=== PATIENT | female | born 1950 | race Asian ===

== ENCOUNTER 2024-04-02 07:37 | Inpatient (IN) | payer MEDICARE, MEDICAID ==
[~2024-04-02] VITALS: Ht 154.9 cm; Wt 57.5 kg
[~2024-04-02 07:37] MED LIST: CALC1CHW PO; LEVO50TA7 PO
[2024-04-02 08:34] LABS: Basophils # (auto) 0 10 ^3/uL (0-0.2); Basophils % (auto) 0.8 % (0.0-2.0); Eosinophils # (auto) 0 10 ^3/uL (0-0.8); Eosinophils % (auto) 0.8 % (0.0-7.0); Hematocrit 38.8 % (36.0-46.0); Hemoglobin 13.7 g/dL (12.2-16.2); Lymphocytes # (auto) 1.7 10 ^3/uL (0.4-5.4); Lymphocytes % (auto) 37.1 % (10.0-50.0); Mean Corpuscular Hemoglobin 33.7 pg (28.0-32.0); Mean Corpuscular Hgb Conc. 35.4 g/dL (32.0-36.0); Mean Corpuscular Volume 95.1 fL (80.0-100.0); Monocytes # (auto) 0.4 10 ^3/uL (0-1.3); Monocytes % (auto) 8.1 % (0.0-12.0); Neutrophils # (auto) 2.5 10 ^3/uL (1.6-8.6); Neutrophils % (auto) 53.2 % (37.0-80.0); Platelet Count (auto) 298 10^3/uL (140-450); Red Blood Cells 4.08 10^6/uL (4.0-5.20); Red Cell Distribution Width 14.2 % (11.8-14.3); White Blood Cell 4.7 10^3/uL (4.4-10.8)
[2024-04-02 08:42] LABS: Chloride 102 mmol/L (98-107); Potassium 4.7 mmol/L (3.5-5.1); Sodium 132 mmol/L (136-145)
[2024-04-02 08:43] LABS: Anion Gap 4 (5-15); Calcium 9.6 mg/dL (8.7-10.4); Carbon Dioxide 26 mmol/L (20-30)
[2024-04-02 08:48] LABS: BUN/Creatinine Ratio 18.4 (10.0-20.0); Blood Urea Nitrogen 14 mg/dL (9-23); Glucose 88 mg/dL (74-106)
[2024-04-02 09:48] VITALS: PULSE 63; RESP 18; O2SAT 96
[2024-04-02 10:37] LABS: Urine Bacteria None Seen /hpf (None Seen); Urine WBC None Seen /hpf (0 - 5)
[2024-04-02 10:54] LABS: Urine Blood Negative /uL (Negative); Urine Clarity Clear (Clear); Urine Color Colorless (Yellow); Urine Protein, UAD Negative (Negative); Urine Specific Gravity 1.008 (1.001-1.035); Urine Urobilinogen Normal (Negative)
[2024-04-02] MEDS: SODIUM CHLORIDE 0.9% 1,000 ML IV SCH (11:15)
[2024-04-02] MEDS: ASPirin 325 MG TAB PO ONE (11:37)
[2024-04-02 12:28] LABS: Erythrocyte Sedimentation Rate 8 mm/hr (0-20)
[2024-04-02] MEDS ORDERED: NITROGLYCERIN 0.4 MG SL TAB SL PRN ×2 (13:15→13:30)
[2024-04-02 14:47] VITALS: BP 157/88; PULSE 68; RESP 18; TEMP 97.8; O2SAT 96
[2024-04-02 15:01] VITALS: BP 112/58; PULSE 68; RESP 18; TEMP 97.9; O2SAT 98
[2024-04-02] MEDS ORDERED: LISI20TA56 PO (16:30)
[2024-04-02] MEDS ORDERED: LACT1CAP33 PO (16:30)
[2024-04-02] MEDS ORDERED: ALEN70TA74 PO (16:30)
[2024-04-02] MEDS ORDERED: LEVO75CA3 PO (16:30)
[2024-04-02] MEDS ORDERED: OMEP20TA PO (16:30)
[2024-04-02] MEDS ORDERED: ESCI10TA PO (16:30)
[2024-04-02] MEDS ORDERED: ATOR10TA52 PO (16:32)
[2024-04-02] MEDS ORDERED: CHOL10006 PO (16:32)
[2024-04-02 21:00] VITALS: BP 155/88; PULSE 59; RESP 17; TEMP 97.9; O2SAT 97
[2024-04-02] MEDS: ATORVASTATIN 20 MG TAB PO SCH (22:00)
[2024-04-03 01:00] VITALS: BP 124/71; PULSE 57; RESP 14; TEMP 97.6; O2SAT 97
[2024-04-03 05:00] VITALS: BP 142/79; PULSE 54; RESP 14; TEMP 97.6; O2SAT 98
[2024-04-03 08:06] LABS: RPR Non Reactive (Non Reactive)
[2024-04-03 09:00] VITALS: BP 145/83; PULSE 64; RESP 16; TEMP 99; O2SAT 97
[2024-04-03] MEDS ORDERED: LEVOTHYROXINE SODIUM 50 MCG TAB PO SCH (10:00)
[2024-04-03] MEDS: ATORVASTATIN 20 MG TAB PO SCH (10:30)
[2024-04-03] MEDS ORDERED: LEVOTHYROXINE SODIUM 25 MCG TAB PO ONE (11:15)
[2024-04-03] MEDS ORDERED: CALCIUM CARB 500 MG CHEW TAB PO SCH (11:15)
[2024-04-03] MEDS: ENOXAPARIN SOD 40 MG/0.4 ML SYRINGE SC SCH (11:37)
[2024-04-03] MEDS: ASPirin 81 mg TAB PO SCH (11:37)
[2024-04-03 11:52] LABS: INR 1.02 (0.9-1.15); Partial Thromboplastin Time 27.9 SEC (24.5-34.5); Prothrombin Time 10.8 sec (9.3-11.8)
[2024-04-03 12:07] LABS: Anion Gap 5 (5-15); Carbon Dioxide 27 mmol/L (20-30); Chloride 103 mmol/L (98-107); Potassium 4.2 mmol/L (3.5-5.1); Sodium 135 mmol/L (136-145)
[2024-04-03 12:08] LABS: Calcium 9.7 mg/dL (8.7-10.4)
[2024-04-03 12:13] LABS: BUN/Creatinine Ratio 19.7 (10.0-20.0); Blood Urea Nitrogen 14 mg/dL (9-23); Glucose 103 mg/dL (74-106)
[2024-04-03 12:33] LABS: COVID19 ANTIGEN SOFIA FIA NEGATIVE (NEGATIVE)
[2024-04-03 13:00] VITALS: BP 142/77; PULSE 61; RESP 16; TEMP 98.6; O2SAT 99
[2024-04-03 17:00] VITALS: BP 146/80; PULSE 76; RESP 16; TEMP 98.8; O2SAT 96
[2024-04-03 21:00] VITALS: BP 153/75; PULSE 71; RESP 16; TEMP 98; O2SAT 97
[2024-04-03] MEDS ORDERED: PATIENTS OWN MEDICATION (Atorvastatin Calcium 1 TAB) PO SCH (22:00)
[2024-04-03] MEDS: CHOLECALCIFEROL (VITD3) 1,000UNIT=25mCg TAB PO SCH (22:44)
[2024-04-04 05:00] VITALS: BP 111/72; PULSE 60; RESP 14; TEMP 98; O2SAT 98
[2024-04-04] MEDS: LEVOTHYROXINE SODIUM 25 MCG TAB PO SCH (06:38)
[2024-04-04 09:00] VITALS: BP 129/72; PULSE 70; RESP 16; TEMP 98.3; O2SAT 98
[2024-04-04] MEDS: PANTOPRAZOLE 40 MG TAB PO SCH (11:03)
[2024-04-04] MEDS: LISINOPRIL 20 MG TAB PO SCH (11:03)
[2024-04-04 13:00] VITALS: BP 124/79; PULSE 66; RESP 18; TEMP 97.8; O2SAT 99
[2024-04-04] MEDS: CLOPIDOGREL BISULFATE 75 MG TAB PO ONE (15:28)
[2024-04-04 17:00] VITALS: BP 109/66; PULSE 63; RESP 18; TEMP 98.5; O2SAT 99
[2024-04-04 20:00] VITALS: PULSE 72; RESP 16
[2024-04-04 21:00] VITALS: BP 148/71; PULSE 72; RESP 18; TEMP 98; O2SAT 98
[2024-04-05 01:00] VITALS: BP 124/71; PULSE 98; RESP 18; TEMP 97.8; O2SAT 99
[2024-04-05 05:00] VITALS: BP 161/71; PULSE 82; RESP 16; TEMP 98.1; O2SAT 95
[2024-04-05 08:00] VITALS: PULSE 59; RESP 18; O2SAT 99
[2024-04-05] MEDS: CLOPIDOGREL BISULFATE 75 MG TAB PO SCH (08:47)
[2024-04-05 09:20] VITALS: BP 122/52; PULSE 59; RESP 17; TEMP 98.4; O2SAT 96
[2024-04-05] MEDS ORDERED: ASPI-628 PO (10:59)
[2024-04-05] MEDS ORDERED: CLOP75TA28 PO (10:59)
[2024-04-05 11:26] VITALS: BP 122/52; PULSE 59; RESP 17; TEMP 98.4; O2SAT 96
== END 2024-04-05 14:10 | disposition home or self-care (01) | DRG 65 ==
LOC: ER 07:37 → OVERFLOW 13:13 → ER 13:13 → WEST WING 14:51
PROVIDERS: ADMIT Nurse Practitioner Family; ATTEND Nurse Practitioner Family
DX: I63.89 Other cerebral infarction (principal); E87.1 Hypo-osmolality and hyponatremia; I10 Essential (primary) hypertension; F32.A Depression, unspecified; K21.9 Gastro-esophageal reflux disease without esophagitis; M81.0 Age-related osteoporosis without current pathological fracture; E78.00 Pure hypercholesterolemia, unspecified; Z20.822 Contact with and (suspected) exposure to COVID-19; E89.0 Postprocedural hypothyroidism; Z79.02 Long term (current) use of antithrombotics/antiplatelets; Z79.82 Long term (current) use of aspirin
CPT/HCPCS: 36415; 70450; 70551; 80048; 81001; 82962; 84100; 84443; 85025; 85610; 85652; 85730; 86592; 87426; 93005; 93306; 93886; 96360; 97110; 97116; 97163; 97530; G0378

== ENCOUNTER 2025-01-02 20:10 | Inpatient (IN) | payer MEDICARE, MEDICAID ==
[~2025-01-02] VITALS: Ht 165.1 cm; Wt 54.0 kg
[~2025-01-02 20:10] MED LIST changes: +ALEN70TA74 PO; +ASPI-628 PO; +ATOR10TA52 PO; +CHOL10006 PO; +CLOP75TA28 PO; +ESCI10TA PO; +LACT1CAP33 PO; +LEVO75CA3 PO; +LISI20TA56 PO; +OMEP20TA PO
--- NOTE | 2025-01-02 20:56 | ED.PDOC ---
History of Present Illness Time Seen by MD: 20:40 Primary Care Provider: CHAVO Stover Notes: Nurses Notes, Medications, Allergies Allergies: Coded Allergies: NO KNOWN ALLERGIES (Unverified , 06/13/11) Home Meds Active Scripts Clopidogrel Bisulfate (Plavix) 75 Mg Tab, 1 TAB PO DAILY, #21 TAB 1 Refill Prov:JEWELL THOMPSON MD 04/05/24 Aspirin (Aspirin Adult Low Dose) 81 Mg Tab, 81 MG PO DAILY, #90 TAB Prov:JEWELL THOMPSON MD 04/05/24 Reported Medications Cholecalciferol (Vitamin D) 1,000 Unit Cap, 1000 UNIT PO HS, CAP 04/02/24 Atorvastatin Calcium (ATORVASTATIN CALCIUM) 10 Mg Tab, 1 TAB PO HS, #30 TAB 5 Refills 04/02/24 Escitalopram Oxalate (Lexapro) 10 Mg Tab, 1 TAB PO DAILY, #90 TAB 3 Refills 04/02/24 Lisinopril (Lisinopril) 20 Mg Tab, 10 MG PO DAILY, TAB 04/02/24 Levothyroxine Sodium (Levothyroxine Sodium) 75 Mcg Cap, 75 MCG PO, CAP 04/02/24 Omeprazole (Gnp Omeprazole) 20 Mg Tab, 1 TAB PO DAILY, #90 TAB 1 Refill 04/02/24 Lactobacillus-Inulin (Culturelle Digestive Kye) 1 Cap Cap, 1 CAP PO, CAP 04/02/24 Alendronate Sodium (Alendronate Sodium) 70 Mg Tab, 1 TAB PO QWEEKLY, #4 TAB 3 Refills 04/02/24 Calcium Carbonate (Jared-Gest Antacid) 500 Mg Chw, 500 MG PO PRN, CHW 06/19/13 Levothyroxine Sodium (Levothyroxine Sodium) 50 Mcg Tab, 50 MCG PO DAILY, TAB 06/19/13 Information Source: Patient, Relative (Child) Mode of Arrival: Ambulatory Severity: Moderate Timing: Days Duration: Since onset Prehospital treatment: None Past Medical History PAST MEDICAL HISTORY: Depression, GERD, High Lipids, HTN, Thyroid (hyp othyroidism) Past Medical History (Other): osteoporosis Surgical History: Thyroidectomy CUSTOMER CARE MANAGER History: No Pertinent CUSTOMER CARE MANAGER History Family History Family History: Unknown Social History Smoker: Non-Smoker Alcohol: Denies ETOH Use Drugs: Denies Drug Use Lives In: Home All Other Systems: Reviewed and Negative (Comprehensive systems review obtained and negative except for what is stated in the HPI.) Physical Exam General Appearance: No Apparent Distress, Normal HEENT: Normal ENT Inspection, Pharynx Normal, TMs Normal Neck: Full Range of Motion, Non-Tender, Normal, Normal Inspection Respiratory: Chest Non-Tender, Lungs Clear, No Accessory Muscle Use, No Respiratory Distress, Normal Breath Sounds Cardiovascular: No Edema, No JVD, No Murmur, No Gallop, Normal Peripheral Pulses, Regular Rate/Rhythm Breast Exam: Deferred Gastrointestinal: No Organomegaly, Non Tender, No Pulsatile Mass, Normal Bowel Sounds, Soft Genitalia: Deferred Pelvic: Deferred Rectal: Deferred Extremities: No calf tenderness, Normal capillary refill, Normal range of motion, Non-tender, Swelling (1+ pitting edema to bilateral lowre extremities ) Musculoskeletal : Apperance: Normal Neurologic: Alert, call center specialist II-XII nml as Tested, No Motor Deficits, Normal Affect, Normal Mood, No Sensory Deficits Cerebellar Function: Normal Reflexes: Normal Skin: Dry, Normal Color, Warm Lymphatic: No Adenopathy Was a procedure done? Was a procedure done?: No EKG EKG : [place]: Normal Cardiac Rhythm: NSR Block: None Hypertrophy: None ST: Normal X-Ray, Labs, Meds, VS Vital Signs Date Time Temp Pulse Resp B/P (MAP) Pulse Ox O2 Delivery O2 Flow Rate FiO2 01/02/25 20:35 98.2 77 18 126/68 (87) 99 98.2 Lab Test 01/02/25 20:49 Range/Units White Blood Count 8.4 4.4-10.8 10^3/uL Red Blood Count 3.31 L 4.0-5.20 10^6/uL Hemoglobin 10.5 L 12.2-16.2 g/dL Hematocrit 30.4 L 36.0-46.0 % Mean Corpuscular Volume 91.9 80.0-100.0 fL Mean Corpuscular Hemoglobin 31.8 28.0-32.0 pg Mean Corpuscular Hemoglobin Concent 34.6 32.0-36.0 g/dL Red Cell Distribution Width 13.8 11.8-14.3 % Platelet Count 316 140-450 10^3/uL Mean Platelet Volume 6.0 L 6.9-10.8 fL Neutrophils (%) (Auto) 58.7 37.0-80.0 % Lymphocytes (%) (Auto) 26.3 10.0-50.0 % Monocytes (%) (Auto) 12.9 H 0.0-12.0 % Eosinophils (%) (Auto) 1.4 0.0-7.0 % Basophils (%) (Auto) 0.7 0.0-2.0 % Neutrophils # (Auto) 4.9 1.6-8.6 10 ^3/uL Lymphocytes # (Auto) 2.2 0.4-5.4 10 ^3/uL Monocytes # (Auto) 1.1 0-1.3 10 ^3/uL Eosinophils # (Auto) 0.1 0-0.8 10 ^3/uL Basophils # (Auto) 0.1 0-0.2 10 ^3/uL Nucleated Red Blood Cells 0.0 % Sodium Level 131 L 136-145 mmol/L Potassium Level 3.9 3.5-5.1 mmol/L Chloride Level 100 98-107 mmol/L Carbon Dioxide Level 27 20-31 mmol/L Anion Gap 4 L 5-15 Blood Urea Nitrogen 14 9-23 mg/dL Creatinine 0.67 0.550-1.02 mg/dL Glomerular Filtration Rate Calc 92 >90 mL/min BUN/Creatinine Ratio 20.9 H 10.0-20.0 Serum Glucose 104 74-106 mg/dL Calcium Level 8.9 8.7-10.4 mg/dL Troponin I High Sensitivity < 3 L </=34 ng/L B-Type Natriuretic Peptide 14.88 0-100 pg/mL Time of 1ST Reevaluation: 21:20 Reevaluation 1ST: Unchanged Patient Education/Counseling: Diagnosis, Treatment, Other (need for admission ) Family Education/Counseling: Diagnosis, Treatment, Other (need for admission ) Additional Information Critical Care Note Critical Care Time?: No Stability Stability form required: No Heart Score Heart Score: Heart Score Response (Comments) Value EKG Normal 0 Age >65 2 Risk Factors >3 or Hx ASHD 2 Total 4 I personally scribed for NELDA RUBIO MD ([email or web address]) on 01/02/25 at 20:56. Electronically submitted by Chase Rojas ([email or web address]). I personally scribed for NELDA RUBIO MD ([email or web address]) on 01/02/25 at 21:32. Electronically submitted by Chase Rojas ([email or web address]). NELDA RUBIO MD Jan 02, 2025 20:56
[2025-01-02 20:58] LABS: Basophils # (auto) 0.1 10 ^3/uL (0-0.2); Basophils % (auto) 0.7 % (0.0-2.0); Eosinophils # (auto) 0.1 10 ^3/uL (0-0.8); Eosinophils % (auto) 1.4 % (0.0-7.0); Hematocrit 30.4 % (36.0-46.0); Hemoglobin 10.5 g/dL (12.2-16.2); Lymphocytes # (auto) 2.2 10 ^3/uL (0.4-5.4); Lymphocytes % (auto) 26.3 % (10.0-50.0); Mean Corpuscular Hemoglobin 31.8 pg (28.0-32.0); Mean Corpuscular Hgb Conc. 34.6 g/dL (32.0-36.0); Mean Corpuscular Volume 91.9 fL (80.0-100.0); Monocytes # (auto) 1.1 10 ^3/uL (0-1.3); Monocytes % (auto) 12.9 % (0.0-12.0); Neutrophils # (auto) 4.9 10 ^3/uL (1.6-8.6); Neutrophils % (auto) 58.7 % (37.0-80.0); Platelet Count (auto) 316 10^3/uL (140-450); Red Blood Cells 3.31 10^6/uL (4.0-5.20); Red Cell Distribution Width 13.8 % (11.8-14.3); White Blood Cell 8.4 10^3/uL (4.4-10.8)
[2025-01-02 21:06] LABS: Chloride 100 mmol/L (98-107); Potassium 3.9 mmol/L (3.5-5.1)
[2025-01-02 21:07] LABS: Anion Gap 4 (5-15); Carbon Dioxide 27 mmol/L (20-31)
[2025-01-02 21:08] LABS: Calcium 8.9 mg/dL (8.7-10.4)
[2025-01-02 21:09] LABS: Sodium 131 mmol/L (136-145)
[2025-01-02 21:12] LABS: BUN/Creatinine Ratio 20.9 (10.0-20.0); Blood Urea Nitrogen 14 mg/dL (9-23); Glucose 104 mg/dL (74-106)
--- NOTE | 2025-01-02 21:13 | DVH ---
CHEST RADIOGRAPH Indication: feet swelling Technique: Single frontal view of the chest was obtained COMPARISON: None FINDINGS: Lines and Tubes: None Lungs: Clear Pleura: No effusion. No pneumothorax. Cardiomediastinal contours: Unremarkable IMPRESSION: No acute disease.
--- NOTE | 2025-01-02 21:37 | ED.PDOC ---
History of Present Illness HPI Comments 74 y/o Mandarin speaking F presents with daughter for 3x day history of bilateral feet swelling, with associated shortness of breath. Patient has a history of GERD, HLD, HTN, osteoporoses, and hypothyroidism s/p thyroidectomy. She endorses on unprovoked onset of symptoms, that began, initially, with swelling to her left foot and right foot swelling the day afterwards. Patient reports having same symptoms, with accompanying ED visit and hospitalization a year ago. She denies having any chest pain, palpitations, numbness, tingling, or further associated symptoms. Chief Complaint: Lower Extremity Time Seen by MD: 20:40 Primary Care Provider: CHAVO Reviewed Notes: Nurses Notes, Medications, Allergies Allergies: Coded Allergies: NO KNOWN ALLERGIES (Unverified , 06/13/11) Home Meds Active Scripts Clopidogrel Bisulfate (Plavix) 75 Mg Tab, 1 TAB PO DAILY, #21 TAB 1 Refill Prov:JEWELL THOMPSON MD 04/05/24 Aspirin (Aspirin Adult Low Dose) 81 Mg Tab, 81 MG PO DAILY, #90 TAB Prov:JEWELL THOMPSON MD 04/05/24 Reported Medications Cholecalciferol (Vitamin D) 1,000 Unit Cap, 1000 UNIT PO HS, CAP 04/02/24 Atorvastatin Calcium (ATORVASTATIN CALCIUM) 10 Mg Tab, 1 TAB PO HS, #30 TAB 5 Refills 04/02/24 Escitalopram Oxalate (Lexapro) 10 Mg Tab, 1 TAB PO DAILY, #90 TAB 3 Refills 04/02/24 Lisinopril (Lisinopril) 20 Mg Tab, 10 MG PO DAILY, TAB 04/02/24 Levothyroxine Sodium (Levothyroxine Sodium) 75 Mcg Cap, 75 MCG PO, CAP 04/02/24 Omeprazole (Gnp Omeprazole) 20 Mg Tab, 1 TAB PO DAILY, #90 TAB 1 Refill 04/02/24 Lactobacillus-Inulin (Culturelle Digestive Kye) 1 Cap Cap, 1 CAP PO, CAP 04/02/24 Alendronate Sodium (Alendronate Sodium) 70 Mg Tab, 1 TAB PO QWEEKLY, #4 TAB 3 Refills 04/02/24 Calcium Carbonate (Jared-Gest Antacid) 500 Mg Chw, 500 MG PO PRN, CHW 06/19/13 Levothyroxine Sodium (Levothyroxine Sodium) 50 Mcg Tab, 50 MCG PO DAILY, TAB 06/19/13 Information Source: Patient, Relative (Child) Mode of Arrival: Ambulatory Severity: Moderate Timing: Days Duration: Since onset Prehospital treatment: None Past Medical History PAST MEDICAL HISTORY: Depression, GERD, High Lipids, HTN, Thyroid (hypothyroidism) Past Medical History (Other): osteoporosis Surgical History: Thyroidectomy PUBLIC POLICY COORDINATOR History: No Pertinent PUBLIC POLICY COORDINATOR History Family History Family History: Unknown Social History Smoker: Non-Smoker Alcohol: Denies ETOH Use Drugs: Denies Drug Use Lives In: Home All Other Systems: Reviewed and Negative (Comprehensive systems review obtained and negative except for what is stated in the HPI.) Physical Exam General Appearance: No Apparent Distress, Normal HEENT: Normal ENT Inspection, Pharynx Normal, TMs Normal Neck: Full Range of Motion, Non-Tender, Normal, Normal Inspection Respiratory: Chest Non-Tender, Lungs Clear, No Accessory Muscle Use, No Respiratory Distress, Normal Breath Sounds Cardiovascular: No Edema, No JVD, No Murmur, No Gallop, Normal Peripheral Pulses, Regular Rate/Rhythm Breast Exam: Deferred Gastrointestinal: No Organomegaly, Non Tender, No Pulsatile Mass, Normal Bowel Sounds, Soft Genitalia: Deferred Pelvic: Deferred Rectal: Deferred Extremities: No calf tenderness, Normal capillary refill, Normal range of motion, Non-tender, Swelling (1+ pitting edema to bilateral lowre extremities ) Musculoskeletal : Apperance: Normal Neurologic: Alert, truck shop mechanic II-XII nml as Tested, No Motor Deficits, Normal Affect, Normal Mood, No Sensory Deficits Cerebellar Function: Normal Reflexes: Normal Skin: Dry, Normal Color, Warm Lymphatic: No Adenopathy Was a procedure done? Was a procedure done?: No Differential Dx Considerations may include: DVT, PE, NM, cellulitis, dermatitis, among others X-Ray, Labs, Meds, VS Vital Signs Date Time Temp Pulse Resp B/P (MAP) Pulse Ox O2 Delivery O2 Flow Rate FiO2 01/02/25 22:57 97.9 67 16 148/70 (96) 97 97.9 01/02/25 20:35 98.2 77 18 126/68 (87) 99 98.2 Lab Test 01/02/25 21:47 01/02/25 20:49 Range/Units Troponin I High Sensitivity < 3 L < 3 L </=34 ng/L White Blood Count 8.4 4.4-10.8 10^3/uL Red Blood Count 3.31 L 4.0-5.20 10^6/uL Hemoglobin 10.5 L 12.2-16.2 g/dL Hematocrit 30.4 L 36.0-46.0 % Mean Corpuscular Volume 91.9 80.0-100.0 fL Mean Corpuscular Hemoglobin 31.8 28.0-32.0 pg Mean Corpuscular Hemoglobin Concent 34.6 32.0-36.0 g/dL Red Cell Distribution Width 13.8 11.8-14.3 % Platelet Count 316 140-450 10^3/uL Mean Platelet Volume 6.0 L 6.9-10.8 fL Neutrophils (%) (Auto) 58.7 37.0-80.0 % Lymphocytes (%) (Auto) 26.3 10.0-50.0 % Monocytes (%) (Auto) 12.9 H 0.0-12.0 % Eosinophils (%) (Auto) 1.4 0.0-7.0 % Basophils (%) (Auto) 0.7 0.0-2.0 % Neutrophils # (Auto) 4.9 1.6-8.6 10 ^3/uL Lymphocytes # (Auto) 2.2 0.4-5.4 10 ^3/uL Monocytes # (Auto) 1.1 0-1.3 10 ^3/uL Eosinophils # (Auto) 0.1 0-0.8 10 ^3/uL Basophils # (Auto) 0.1 0-0.2 10 ^3/uL Nucleated Red Blood Cells 0.0 % Sodium Level 131 L 136-145 mmol/L Potassium Level 3.9 3.5-5.1 mmol/L Chloride Level 100 98-107 mmol/L Carbon Dioxide Level 27 20-31 mmol/L Anion Gap 4 L 5-15 Blood Urea Nitrogen 14 9-23 mg/dL Creatinine 0.67 0.550-1.02 mg/dL Glomerular Filtration Rate Calc 92 >90 mL/min BUN/Creatinine Ratio 20.9 H 10.0-20.0 Serum Glucose 104 74-106 mg/dL Calcium Level 8.9 8.7-10.4 mg/dL B-Type Natriuretic Peptide 14.88 0-100 pg/mL [facility] [id number] [facility] [address] Ph: [phone] DIAGNOSTIC IMAGING Diagnostic Imaging Report : [id number] Signed PATIENT: MIKE OLGUIN ACCT: [id number] UNIT: [id number] : 1950 LOC: ER ROOM / BED: / AGE / SEX: 74 / F ADM STATUS: REG ER SERVICE 25 ORDERING PHYSICIAN: ANDREIA AGUILERA MD PROCEDURE(s): CXRP - CHEST PORTABLE REASON: feet swelling ORDER NUMBER(s): [id number], ACCESSION NUMBER(s): [id number] CHEST RADIOGRAPH Indication: feet swelling Technique: Single frontal view of the chest was obtained COMPARISON: None FINDINGS: Lines and Tubes: None Lungs: Clear Pleura: No effusion. No pneumothorax. Cardiomediastinal contours: Unremarkable IMPRESSION: No acute disease. ATED BY: QUAN HAIDER MD DICTATED DATE/TIME: 01/02/252109 SIGNED BY: QUAN HAIDER MD SIGNED DATE/TIME: 01/02/252109 CC: Time of 1ST Reevaluation: 21:20 Reevaluation 1ST: Unchanged Patient Education/Counseling: Diagnosis, Treatment, Other (need for admission ) Family Education/Counseling: Diagnosis, Treatment, Other (need for admission ) Additional Information Previous visits reviewed: April 02, 2024 encounter for acute left side numbness The following tests were ordered, and results were reviewed by me: EKG, CXR, CBC, BMP, BNP, troponin Additional Information was gathered from interviewing the following independent historians: daughter I reviewed and agreed with the following test results read by other providers: CXR I discussed treatment and results with medical personnel and: patient, daughter Departure 1 Departure Time of Disposition: 23:22 (Patient with a worsening lower extremity edema a and shortness of breath concerning for possible heart failure. We will admit patient for further workup and expert consultation) Impression: Primary Impression: Lower extremity edema Additional Impression: Shortness of breath Disposition: ADMITTED INPATIENT Admit to: Med Surg Condition: Serious Critical Care Note Critical Care Time?: No Stability Stability form required: No Heart Score Heart Score: Heart Score Response (Comments) Value History Moderate Suspicious 1 EKG Repolarization Disturb 1 Age >65 2 Risk Factors >3 or Hx ASHD 2 Troponin Normal limit 0 Total 6 I personally scribed for ANDREIA AGUILERA MD ([email or web address]) on 01/02/25 at 21:37. Elec tronically submitted by Chase Rojas ([email or web address]). ANDREIA AGUILERA MD Jan 02, 2025 21:37
--- NOTE | 2025-01-02 23:51 | DVHHPRES ---
History of Present Illness Resident Creating Document: QUITA GLASER RESIDENT History of Present Illness This is a 74-year-old Mandarin speaking female with past medical history of hypertension, CVA, hyperlipidemia, GERD, osteoporosis, 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 According to the daughter the patient was complaining of bilateral leg pain and swelling for last 3 days and she had previous same symptoms went to the urgent care and was prescribed antibiotics for cellulitis of the lower extremity . She denies having any chest pain, palpitations, numbness, tingling, or further associated symptoms. PCP: Lilo Desirahim Neurologist: Dr. Lezama Past Medical History Hypertension, CVA, hyperlipidemia, GERD, osteoporosis, acquired hypothyroidism Past Surgical History: None Past Surgical History Total thyroidectomy Family History Noncontributory Past Social History Lives with family Nonsmoker, nonalcoholic and never tried any drugs Review of Systems Constitutional: No: Fever, Chills, Sweats, Weakness, Malaise, Other Eyes: No: Pain, Vision change, Conjunctivae inflammation, Eyelid inflammation, Other, Redness ENT: No: Ear pain, Ear discharge, Nose pain, Nose discharge, Nose congestion, Mouth pain, Mouth swelling, Throat pain, Throat swelling, Other Respiratory: No: Cough, Dry, Shortness of breath, SOB with excertion, Wheezing, Hemoptysis, Pleuritic Pain, Sputum, Wheezing, Other Cardiovascular: Edema; No: Chest Pain, Palpitations, Orthopnea, Paroxysmal Noc. Dyspnea, Lt Headedness, Other Gastrointestinal: No: Nausea, Vomiting, Abdominal Pain, Diarrhea, Constipation, Melena, Hematochezia, Other Genitourinary: No Dysuria, No Frequency, No Incontinence, No Hematuria, No Retention, No Other Musculoskeletal: leg pain, foot pain; No: other, neck pain, shoulder pain, arm pain, back pain, hand pain Skin: No: Rash, Lesions, Jaundice, Bruising, Other Neurological: No: Weakness, Numbness, Incoordination, Change in speech, Confusion, Seizures, Other Allergies: Coded Allergies: NO KNOWN ALLERGIES (Unverified , 06/13/11) Exam Vital Signs Vital Signs Date Time Temp Pulse Resp B/P (MAP) Pulse Ox O2 Delivery O2 Flow Rate FiO2 01/02/25 22:57 97.9 67 16 148/70 (68) 97 97.9 Exam Physical examination: General Appearance: Alert, Oriented X3, Cooperative, No acute distress HEENT: Atraumatic, PERRLA, EOMI, Mucous membrane moist/pink Respiratory: Clear to auscultation, Normal air movement Cardiovascular: Regular rate, Normal S1, Normal S2, No murmurs, no chest wall tenderness Abdominal: Normal bowel sounds, Soft, No tenderness, No hepatospenomegaly, No masses Extremities: Redness and edema in bilateral legs, No clubbing, No cyanosis, Normal pulses. Skin: No rashes, No breakdown, No significant lesion Neuro: Normal speech, Strength at 5/5 X4 ext, Normal tone, Sensation intact, Cranial nerves 3-12 NL, Reflexes 2+ Psych/Mental Status: Could not be assessed Labs/Xrays Labs Test 01/02/25 21:47 01/02/25 20:49 Range/Units Troponin I High Sensitivity < 3 L </=34 ng/L White Blood Count 8.4 4.4-10.8 10^3/uL Red Blood Count 3.31 L 4.0-5.20 10^6/uL Hemoglobin 10.5 L 12.2-16.2 g/dL Hematocrit 30.4 L 36.0-46.0 % Mean Corpuscular Volume 91.9 80.0-100.0 fL Mean Corpuscular Hemoglobin 31.8 28.0-32.0 pg Mean Corpuscular Hemoglobin Concent 34.6 32.0-36.0 g/dL Red Cell Distribution Width 13.8 11.8-14.3 % Platelet Count 316 140-450 10^3/uL Mean Platelet Volume 6.0 L 6.9-10.8 fL Neutrophils (%) (Auto) 58.7 37.0-80.0 % Lymphocytes (%) (Auto) 26.3 10.0-50.0 % Monocytes (%) (Auto) 12.9 H 0.0-12.0 % Eosinophils (%) (Auto) 1.4 0.0-7.0 % Basophils (%) (Auto) 0.7 0.0-2.0 % Neutrophils # (Auto) 4.9 1.6-8.6 10 ^3/uL Lymphocytes # (Auto) 2.2 0.4-5.4 10 ^3/uL Monocytes # (Auto) 1.1 0-1.3 10 ^3/uL Eosinophils # (Auto) 0.1 0-0.8 10 ^3/uL Basophils # (Auto) 0.1 0-0.2 10 ^3/uL Nucleated Red Blood Cells 0.0 % Sodium Level 131 L 136-145 mmol/L Potassium Level 3.9 3.5-5.1 mmol/L Chloride Level 100 98-107 mmol/L Carbon Dioxide Level 27 20-31 mmol/L Anion Gap 4 L 5-15 Blood Urea Nitrogen 14 9-23 mg/dL Creatinine 0.67 0.550-1.02 mg/dL Glomerular Filtration Rate Calc 92 >90 mL/min BUN/Creatinine Ratio 20.9 H 10.0-20.0 Serum Glucose 104 74-106 mg/dL Calcium Level 8.9 8.7-10.4 mg/dL B-Type Natriuretic Peptide 14.88 0-100 pg/mL Assessment/Plan Assessment/Plan Assessment and plan: # Possible Lower extremity cellulitis # Ruled out DVT # Ruled out CHF - Doppler scan of the lower extremity demonstrated no DVT - No risk factor of MRSA - Chest x-ray, EKG and troponins are unremarkable - Echo on 03/27 demonstrated EF 55% with RVSP 26 mm Hg - IV ceftriaxone 1 g daily - Pending echo # Possible subclinical hyperthyroidism # History of acquired hypothyroidism - TSH is low but T3 and T4 are normal - Levothyroxine 25 mcg at q.a.m. # Possible acute complicated cystitis - Patient is complaining of urgency, dysuria - Pending U/A # GERD - Protonix 40 mg po daily. # DVT prophylaxis - Lovenox 40 mg sc daily Goal of care discussed with the daughter for more than 20 minutes full code Plan discussed with Dr. Oconnor Plan discussed with: Daughter, Other (RN) Date of Service: Jan 02, 2025 Billing Provider: MARIJA OCONNOR MD Common Visit Codes: 13780-[id number] INP/OBS CARE (HIGH) Secondary Visit Codes: 04624-[id number] CARE PLAN 30 MINUTES QUITA GLASER RESIDENT Jan 02, 2025 23:51 MARIJA OCONNOR MD Jan 03, 2025 21:49
[2025-01-03] VITALS (7 sets, daily range): BP systolic 109–148; BP diastolic 56–74; PULSE 63–76; RESP 12–18; TEMP 98.1–98.7; O2SAT 95–99
--- NOTE | 2025-01-03 00:35 | DVH ---
Bilateral lower extremity venous duplex Clinical History: To rule out DVT Comparison: None Technique: Duplex Doppler evaluation of the deep venous systems of both lower extremities from the common femora l veins to the popliteal veins including color Doppler and spectral/pulsed waveform analysis was perf ormed. Findings: RIGHT SIDE: The common femoral vein demonstrates appropriate compressibility and waveform variability. There is compressibility/patency of the great saphenous vein at the proximal thigh. The femoral vein demonstrates appropriate compressibility and waveform variability. The deep femoral vein demonstrates appropriate compressibility and waveform variability. The popliteal vein demonstrates appropriate compressibility and waveform variability. There is normal compressibility at the tibioperoneal trunk. LEFT SIDE: The common femoral vein demonstrates appropriate compressibility and waveform variability. There is compressibility/patency of the great saphenous vein at the proximal thigh. The femoral vein demonstrates appropriate compressibility and waveform variability. The deep femoral vein demonstrates appropriate compressibility and waveform variability. The popliteal vein demonstrates appropriate compressibility and waveform variability. There is normal compressibility at the tibioperoneal trunk. Impression: No evidence of right or left femoropopliteal venous thrombosis.
[2025-01-03 01:40] LABS: Free T3 2.76 pg/mL (2.3-4.2)
[2025-01-03 01:41] LABS: Free T4 (Free Thyroxine) 1.28 ng/dL (0.89-1.76)
[2025-01-03] MEDS: cefTRIAXone 1GM/50ML D5W 50 ML IV ONE (02:23)
[2025-01-03] MEDS ORDERED: LISI10TA34 PO (03:57)
[2025-01-03] MEDS ORDERED: HYDR12.59 PO (03:57)
[2025-01-03] MEDS ORDERED: ATOR20TA50 PO (03:57)
[2025-01-03] MEDS ORDERED: LEVO88TA4 PO (03:57)
[2025-01-03 05:45] LABS: Urine Bacteria None Seen /hpf (None Seen)
[2025-01-03 05:58] LABS: Urine Blood TRACE /uL (Negative); Urine Budding Yeast OCCASIONAL /hpf (None Seen); Urine Clarity Clear (Clear); Urine Color Light-Yellow (Yellow); Urine Protein, UAD Negative (Negative); Urine Specific Gravity 1.014 (1.001-1.035); Urine Squamous Epithelial Cell FEW /hpf (<5); Urine Urobilinogen Normal (Negative); Urine WBC 1 /HPF (0-5); Urine pH 6.5 (5.0-9.0)
[2025-01-03 06:36] LABS: Bilirubin, Total 1.2 mg/dL (0.2-1.0); Total Protein 6.8 g/dL (5.7-8.2)
[2025-01-03 06:46] LABS: Bilirubin, Direct 0.5 mg/dL (<0.3)
[2025-01-03] MEDS ORDERED: CEPHALEXIN 250 MG/5ml ORAL Susp 200ML BTL GT SCH (08:15)
[2025-01-03] MEDS ORDERED: LEVOTHYROXINE SODIUM 88 MCG TAB PO SCH (08:25)
[2025-01-03 08:44] LABS: Partial Thromboplastin Time 32.2 SEC (24.5-34.5); Prothrombin Time 10.6 sec (9.3-11.8)
[2025-01-03] MEDS: PANTOPRAZOLE 40 MG/10 ML VIAL INJ IV SCH (09:38)
[2025-01-03] MEDS: CEPHALEXIN 250 MG CAP PO ONE (09:38)
[2025-01-03] MEDS: ASPirin-EC 81 mg tab PO SCH (09:39)
[2025-01-03] MEDS: ENOXAPARIN SOD 40 MG/0.4 ML SYRINGE SC SCH (09:39)
[2025-01-03] MEDS ORDERED: PATIENTS OWN MEDICATION (Lisinopril 10 MG) PO SCH (10:00)
[2025-01-03] MEDS ORDERED: LEV75T PO (11:40)
[2025-01-03] MEDS: hydroCHLOROthiazide 25 MG TAB PO SCH (11:50)
[2025-01-03] MEDS: CITALOPRAM HYDROBR 20 MG TAB PO SCH (11:50)
[2025-01-03] MEDS ORDERED: CEPHALEXIN 250 MG CAP PO SCH (12:00)
--- NOTE | 2025-01-03 13:30 | DVHPNRES ---
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 According to the daughter the patient was complaining of bilateral leg pain and swelling for last 3 days and she had previous same symptoms last year when she went to the urgent care and was prescribed water pills for swelling of the lower extremity . She denies having any chest pain, palpitations, numbness, tingling, or further associated symptoms. PCP: Lilo Desirahim Neurologist: Dr. Lezama Social history: Lives with family Nonsmoker, nonalcoholic and never tried any drugs Patient seen and examined at the bedside. Daughter at Bedside. No Acute distress. Objective vital signs Vital Sign Date Time Temp Pulse Resp B/P (MAP) Pulse Ox O2 Delivery O2 Flow Rate FiO2 01/03/25 11:50 119/56 01/03/25 09:00 98.1 66 12 97 98.1 01/03/25 02:27 Room Air* 0 21 Total Intake and Output 01/02/25 01/02/25 01/03/25 15:00 23:00 07:00 Intake Total 125 ml Balance 125 ml medications Current Medications Medications Dose Ordered Sig/Nik Route Start Time Stop Time Status Last Admin Dose Admin Ceftriaxone Sodium 50 ml @ 100 mls/hr DAILY@09 IV 01/04/25 09:00 Aspirin 81 mg DAILY PO 01/03/25 10:00 01/03/25 09:39 81 MG Atorvastatin Calcium 20 mg HS PO 01/03/25 22:00 Levothyroxine Sodium 88 mcg QAM PO 01/03/25 08:25 Citalopram Hydrobromide 20 mg DAILY PO 01/03/25 10:00 01/03/25 11:50 20 MG Hydrochlorothiazide 12.5 mg DAILY PO 01/03/25 10:00 01/03/25 11:50 12.5 MG Patient Own Medication 10 mg DAILY PO 01/03/25 10:00 UNV Pantoprazole Sodium 40 mg DAILY@0700 IV 01/03/25 08:27 01/03/25 09:38 40 MG Enoxaparin Sodium 40 mg DAILY SC 01/03/25 10:00 01/03/25 09:39 40 MG Examination Patient lying in bed, in no acute distress General: Well-built, afebrile, palor, mucosae are moist Cardiovascular: Regular S1 and S2. No murmurs, gallops or rubs. No JVD elevation. Bilateral pitting pedal edema, right greater than left Respiratory: Normal B/L air entry on room air. Clear lung sounds on auscultation Abdomen: Soft, nontender, nondistended, normoactive bowel sounds, no rebound tenderness, no organomegaly, no masses Genitourinary: Deferred MSK/skin: Mobilizes 4 limbs. Skin is dry and warm. Bilateral feet are swollen, erythematous. Right elbow bruise seen. Neurological: No motor, no sensitive deficits, normal speech. Pupils are isocoric and reactive. Psych/Mental Status: A/Ox3 laboratory and microbiology Laboratory Tests 01/02/25 20:49 Test 01/02/25 20:49 Range/Units Serum Glucose 104 74-106 mg/dL Labs and/or images reviewed: Labs reviewed by me, Image(s) reviewed by me Problem List/Assessment/Plan Problem List/Assessment/Plan # Possible Lower extremity cellulitis # probable chronic venous insufficiency # Ruled out DVT # Ruled out CHF - Doppler scan of the lower extremity demonstrated no DVT - No risk factor of MRSA - Chest x-ray, EKG and troponins are unremarkable - Echo on 03/27 demonstrated EF 55% with RVSP 26 mm Hg - IV ceftriaxone 1 g daily - Pending echo - Lasix 1 time 20 mg IV - leg elevation # Possible subclinical hyperthyroidism # History of thyroidectomy - TSH is low but T3 and T4 are normal - Levothyroxine decreased to 50 mcg from 75 mcg # Possible acute complicated cystitis - Patient is complaining of urgency, dysuria - continue ceftriaxone 1 g daily - pending bladder scan # GERD - Protonix 40 mg po daily. # DVT prophylaxis - Lovenox 40 mg sc daily Cardiac diet Plan discussed with patient and daughter at bedside in which all questions have been answered Goal of care discussed with the daughter for more than 20 minutes full code Plan discussed with Dr. Ramos Plan discussed with: Patient, Daughter My Orders My Orders Orders - JUDI GABRIEL RESIDENT Procedure Category Date Status Time Aspirin Enteric PHA 01/03/25 In Process Coated Tablet 10:00 Atorvastatin (Lipitor) PHA 01/03/25 In Process 22:00 Citalopram Tablet PHA 01/03/25 In Process (Celexa Tablet) 10:00 Hydrochlorothiazide PHA 01/03/25 In Process Tablet (Hydrochlorot 10:00 (Nf) Lisinopril PHA 01/03/25 Logged 10:00 Pantoprazole PHA 01/03/25 In Process (Protonix) 08:27 Enoxaparin Sodium PHA 01/03/25 In Process (Lovenox) 10:00 Levothyroxine Tablet PHA 01/03/25 In Process (Synthroid Tablet) 08:25 Cardiac DIET 01/03/25 Transmitted Diet-2gna,Lofat,Lochol Lunch Bladder Scan ED NURSING 01/03/25 Transmitted Furosemide Injection PHA 01/03/25 Logged (Lasix Injection) 13:15 Elevate Each Leg W/ 1 CRISTHIAN 01/03/25 In Process Pillow P 13:12 Ice Pack To Rt CRISTHIAN 01/03/25 In Process Shoulder 13:12 JUDI GABRIEL RESIDENT Jan 03, 2025 13:30
[2025-01-03] MEDS: FUROSEMIDE 20 MG/2 ML VIAL IV ONE (14:26)
--- NOTE | 2025-01-03 16:33 | DVHSR ---
APPROVED REPORT EXAM: Two-dimensional and M-mode echocardiogram with Doppler and color Doppler. Blood Pressure: 131/74 mmHg INDICATION Peripheral Edema RISK FACTORS Height: 5'5", Weight: 126 DIMENSIONS LVDd4.5 (3.8-5.7cm)LA (2D)4.3 (1.9-4.0cm)Aortic Root3.1 (2.0-3.7cm) LVDs2.3 (2.5-4.0cm)LA (MM) (1.9-4.0cm)Aortic Cusp Exc1.6 (1.5-2.0cm) EF (%) 81.0 (55-70%)Rt. Atrium4.7 (1.9-4.0cm)Asc. Aorta3.2 cm IVSd1.0 (0.7-1.1cm)RV (D)3.8 (1.8-2.4cm) PWd0.7 (0.7-1.1cm) Mitral Valve MitralMitral Stenosis E wave0.88m/sMV Mean GR.mmHg A wave0.99m/sMV Peak GR.mmHg E/A ratio0.92D MVAcm2 DECEL [id number] 1/2 Timems Aortic Valve Aortic ValveAortic Stenosis V11.12m/Joceline Mean GR.6mmHg V21.73m/Joceline Peak GR.12mmHg LVOT Diameter2.1 (1.8-2.4cm)Doppler AVA2.24cm2 Pulmonic Valve V21.00m/s Tricuspid Valve TR Velocity2.53m/s [id number] Conclusion lvef 70% by visual estimate normal rv function biatrial enlargement no severe valve abnormalities noted mild tricuspid regurg
[2025-01-03] MEDS: ATORVASTATIN 20 MG TAB PO SCH (21:12)
[2025-01-03] MEDS: ACETAMINOPHEN 325 MG TAB PO PRN (23:05)
[2025-01-04 05:25] VITALS: BP 118/93; PULSE 68; RESP 16; TEMP 98.5; O2SAT 100
[2025-01-04] MEDS: PANTOPRAZOLE 40 MG TAB PO SCH (05:59)
[2025-01-04] MEDS: LEVOTHYROXINE SODIUM 88 MCG TAB PO SCH (05:59)
[2025-01-04 06:09] LABS: Calcium 8.9 mg/dL (8.7-10.4); Potassium 3.6 mmol/L (3.5-5.1)
[2025-01-04 06:10] LABS: Anion Gap 11 (5-15); Carbon Dioxide 25 mmol/L (20-31)
[2025-01-04 06:15] LABS: BUN/Creatinine Ratio 19.4 (10.0-20.0); Blood Urea Nitrogen 14 mg/dL (9-23)
[2025-01-04 06:19] LABS: Chloride 93 mmol/L (98-107); Glucose 169 mg/dL (74-106); Sodium 129 mmol/L (136-145)
[2025-01-04 08:00] VITALS: PULSE 68; RESP 16; O2SAT 98
[2025-01-04 09:00] VITALS: BP 130/66; PULSE 68; RESP 16; TEMP 98.2; O2SAT 98
[2025-01-04] MEDS: cefTRIAXone 1GM/50ML D5W 50 ML IV SCH (09:38)
[2025-01-04] MEDS: POTASSIUM EFFERVESENT TAB 25 MEQ PO ONE (09:38)
[2025-01-04] MEDS: LISINOPRIL 5 MG TAB PO SCH (10:00)
[2025-01-04] MEDS ORDERED: FER325T PO (12:14)
[2025-01-04] MEDS ORDERED: GABA-1308 PO (12:14)
[2025-01-04] MEDS ORDERED: LEVO-848 PO (12:14)
[2025-01-04] MEDS ORDERED: FURO1TAB33 PO (12:14)
[2025-01-04] MEDS ORDERED: PHEN95TA26 PO (12:14)
[2025-01-04] MEDS: GABAPENTIN 100 MG CAP PO SCH (12:15)
[2025-01-04] MEDS: FERROUS SULFATE 325mg EC TAB PO ONE (12:15)
[2025-01-04] MEDS: PHENAZOPYRIDINE HCL 100 MG TAB PO ONE (12:15)
[2025-01-04] MEDS: GABAPENTIN 100 MG CAP PO ONE (12:15)
--- NOTE | 2025-01-04 15:20 | DVHDSRES ---
Discharge Summary Date of Admission Resident Creating Document: JUDI GABRIEL RESIDENT Jan 02, 2025 at 23:50 Date of Discharge: Jan 04, 2025 Labs/Diagnostic Data: Laboratory Results Test 01/04/25 05:22 01/03/25 05:44 01/03/25 05:33 01/02/25 21:47 Sodium Level 129 mmol/L (136-145) Potassium Level 3.6 mmol/L (3.5-5.1) Chloride Level 93 mmol/L (98-107) Carbon Dioxide Level 25 mmol/L (20-31) Anion Gap 11 (5-15) Blood Urea Nitrogen 14 mg/dL (9-23) Creatinine 0.72 mg/dL (0.550-1.02) Glomerular Filtration Rate Calc 88 mL/min (>90) BUN/Creatinine Ratio 19.4 (10.0-20.0) Serum Glucose 169 mg/dL (74-106) Calcium Level 8.9 mg/dL (8.7-10.4) Iron Level 42 ug/dL (50-170) Total Iron Binding Capacity 299 ug/dL (250-425) Percent Iron Saturation 14.0 % (15-50) Ferritin 274.0 ng/mL (10-291) Urine Color Light-yellow (Yellow) Urine Clarity Clear (Clear) Urine pH 6.5 (5.0-9.0) Urine Specific [place] 1.014 (1.001-1.035) Urine Protein Negative (Negative) Urine Ketones Negative (Negative) Urine Blood Trace /uL (Negative) Urine Nitrite Negative (Negative) Urine Bilirubin Negative (Negative) Urine Urobilinogen Normal mg/dL (Negative) Urine Leukocyte Esterase 1+ /uL (Negative) Urine RBC 2 /hpf (0 - 4) Urine Microscopic WBC 1 /HPF (0-5) Urine Squamous Epithelial Cells Few /hpf (<5) Urine Bacteria None seen /hpf (None Seen) Urine Yeast (Budding) Occasional /hpf (None Urine Glucose Normal mg/dL (Normal) Prothrombin Time 10.6 sec (9.3-11.8) Prothrombin Time INR 1.00 (0.9-1.15) Activated Partial Thromboplast Time 32.2 SEC (24.5-34.5) Magnesium Level 2.3 mg/dL (1.6-2.6) Total Bilirubin 1.2 mg/dL (0.2-1.0) Direct Bilirubin 0.5 mg/dL (<0.3) Aspartate Amino Transferase (AST) 17 U/L (13-40) Alanine Aminotransferase (ALT) 19 U/L (7-40) Alkaline Phosphatase 50 U/L (46-116) Total Protein 6.8 g/dL (5.7-8.2) Albumin 4.0 g/dL (3.2-4.8) Vitamin B12 Level 405 pg/mL (211-911) Vitamin D 25-Hydroxy 80.1 ng/mL (30.0-100) Troponin I High Sensitivity < 3 ng/L (</=34) Thyroid Stimulating Hormone (TSH) 0.03 uIU/mL (0.55-4.78) Test 01/02/25 20:49 White Blood Count 8.4 10^3/uL (4.4-10.8) Red Blood Count 3.31 10^6/uL (4.0-5.20) Hemoglobin 10.5 g/dL (12.2-16.2) Hematocrit 30.4 % (36.0-46.0) Mean Corpuscular Volume 91.9 fL (80.0-100.0) Mean Corpuscular Hemoglobin 31.8 pg (28.0-32.0) Mean Corpuscular Hemoglobin Concent 34.6 g/dL (32.0-36.0) Red Cell Distribution Width 13.8 % (11.8-14.3) Platelet Count 316 10^3/uL (140-450) Mean Platelet Volume 6.0 fL (6.9-10.8) Neutrophils (%) (Auto) 58.7 % (37.0-80.0) Lymphocytes (%) (Auto) 26.3 % (10.0-50.0) Monocytes (%) (Auto) 12.9 % (0.0-12.0) Eosinophils (%) (Auto) 1.4 % (0.0-7.0) Basophils (%) (Auto) 0.7 % (0.0-2.0) Neutrophils # (Auto) 4.9 10 ^3/uL (1.6-8.6) Lymphocytes # (Auto) 2.2 10 ^3/uL (0.4-5.4) Monocytes # (Auto) 1.1 10 ^3/uL (0-1.3) Eosinophils # (Auto) 0.1 10 ^3/uL (0-0.8) Basophils # (Auto) 0.1 10 ^3/uL (0-0.2) Nucleated Red Blood Cells 0.0 % B-Type Natriuretic Peptide 14.88 pg/mL (0-100) Free Thyroxine (T4) Calculated 1.28 ng/dL (0.89-1.76) Free Triiodothyronine (T3) pg/mL 2.76 pg/mL (2.3-4.2) Other Laboratory Tests 01/04/25 05:22 01/02/25 20:49 Brief Hx & Hospital Course: This is a 74-year-old Mandarin speaking female with past medical history of hypertension, CVA, hyperlipidemia, GERD, osteoporosis, 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 According to the daughter the patient was complaining of bilateral leg pain and swelling for last 3 days and she had previous same symptoms last year when she went to the urgent care and was prescribed water pills for swelling of the lower extremity . She denies having any chest pain, palpitations, numbness, tingling, or further associated symptoms. During the hospitalization, lower extremity Doppler was completed, which ruled out DVT. There was low likelihood of cellulitis. Patient has bilateral lower extremity swelling was attributed to chronic venous insufficiency, leg elevation was done along with 1 dose of Lasix 20 mg IV following which patient has lower extremity swelling went down. Patient has symptoms of cystitis, 1 g ceftriaxone IV was started.. Given the lower extremity swelling, echocardiogram was completed which showed EF 55% with RVSP 26 mmHg. Patient's TSH was low, T3/T4 normal, therefore levothyroxine was decreased to 50 mcg from 75 mcg. Bladder scan was WNL. 01/04/2025-patient is hemodynamically stable, no acute distress. Cystitis symptoms are resolving, lower extremity swelling is resolving therefore patient has been discharged home on: Pyridium for 10 days Instructions to do leg elevation Suresh stockings Lasix PRN for persistent lower extremity swelling Ferrous sulfate 325 mg Friday/Friday/Friday for 30 days Gabapentin 100 mg TID for neuropathic pain Patient, patient's daughter agreed to discharge planning. Detailed instructions were given regarding medication side effects and importance of compliance. Family demonstrated understanding. Operations or Procedures ORDERING PHYSICIAN: QUITA GLASER RESIDENT PROCEDURE(s): [facility] - ECHO 2D MODE CARDIAC DOP REASON: Leg swelling ORDER NUMBER(s): [id number], ACCESSION NUMBER(s): [id number] APPROVED REPORT EXAM: Two-dimensional and M-mode echocardiogram with Doppler and color Doppler. Blood Pressure: 131/74 mmHg INDICATION Peripheral Edema RISK FACTORS Height: 5'5", Weight: 126 DIMENSIONS LVDd 4.5 (3.8-5.7cm) LA (2D) 4.3 (1.9-4.0cm) Aortic Root 3.1 (2.0- 3.7cm) LVDs 2.3 (2.5-4.0cm) LA (MM) (1.9-4.0cm) Aortic Cusp Exc 1.6 (1.5- 2.0cm) EF (%) 81.0 (55-70%) Rt. Atrium 4.7 (1.9-4.0cm) Asc. Aorta 3.2 cm IVSd 1.0 (0.7-1.1cm) RV (D) 3.8 (1.8-2.4cm) PWd 0.7 (0.7-1.1cm) Mitral Valve Mitral Mitral Stenosis E wave 0.88m/s MV Mean GR. mmHg A wave 0.99m/s MV Peak GR. mmHg E/A ratio 0.9 2D MVA cm2 DECEL Time 168ms PRESS 1/2 Time ms Aortic Valve Aortic Valve Aortic Stenosis V1 1.12m/s AO Mean GR. 6mmHg V2 1.73m/s AO Peak GR. 12mmHg LVOT Diameter 2.1 (1.8-2.4cm) Doppler MIGUEL ÁNGEL 2.24cm2 Pulmonic Valve V2 1.00m/s Tricuspid Valve TR Velocity 2.53m/s RVSP 29mmHg Conclusion lvef 70% by visual estimate normal rv function biatrial enlargement no severe valve abnormalities noted mild tricuspid regurg SIGNED BY: HARPAL MCINTYRE MD SIGNED DATE/TIME: 01/03/25 2557 CC: Condition at Discharge: Stable Final Diagnosis/Problems List Possible acute complicated cystitis Likely Chronic venous insufficiency Anemia, iron deficiency Ruled out DVT Ruled out CHF Low likelihood of lower extremity cellulitis Probable subclinical hypothyroidism GERD Discharge Disposition: Home Discharge Instruct/Medications Diet: Cardiac 2g Na,low cholest Activity: No Restrictions, As Tolerated Follow Up/Referral: Follow up with primary care physician in 7 days Medications: per oct Discharge Statement: "Patient was advised to return to the ER or call 911 if any headaches, dizziness, shortness of breath, chest pain, abdominal pain, bleeding, fevers, or worsening of medical condition. Patient was counseled about treatment plan, medications, possible side effects, patientverbalized understanding. All questions were answered to the best of my ability. This discharge took greater then 30 minutes in planning, reviewing documentation, counseling the patient, and discussing with other team members." ASSESSMENT ASSESSMENT Assessment Possible acute complicated cystitis Likely Chronic venous insufficiency Anemia, iron deficiency Date of Service: Jan 04, 2025 Billing Provider: CARLOS EDUARDO COSME MD Common Visit Codes: 68082-HBH/OBS DISCH DAY >30min JUDI GABRIEL RESIDENT Jan 04, 2025 15:19 CARLOS EDUARDO COSME MD Jan 05, 2025 08:56
[2025-01-04] MEDS ORDERED: PHENAZOPYRIDINE HCL 100 MG TAB PO SCH (22:00)
== END 2025-01-04 16:15 | disposition home or self-care (01) | DRG 690 ==
LOC: ER 20:10 → OVERFLOW 23:50 → EAST 01-03 03:11
PROVIDERS: ADMIT Student in an Organized Health Care Education/Training Program; ATTEND Emergency Medicine
DX: N30.00 Acute cystitis without hematuria (principal); E05.90 Thyrotoxicosis, unspecified without thyrotoxic crisis or storm; I87.2 Venous insufficiency (chronic) (peripheral); K21.9 Gastro-esophageal reflux disease without esophagitis; I10 Essential (primary) hypertension; M81.0 Age-related osteoporosis without current pathological fracture; E05.80 Other thyrotoxicosis without thyrotoxic crisis or storm; E78.5 Hyperlipidemia, unspecified; D50.9 Iron deficiency anemia, unspecified; F32.A Depression, unspecified; Z79.82 Long term (current) use of aspirin; Z79.899 Other long term (current) drug therapy
CPT/HCPCS: 36415; 71045; 80048; 80076; 81001; 82306; 82607; 82728; 83540; 83550; 83735; 83880; 84439; 84443; 84481; 84484; 85025; 85610; 85730; 93306; 93970; G0378; J2470